=== PATIENT | female | born 1960 | race Caucasian/White ===

== ENCOUNTER 2021-05-25 06:13 | Emergency (ER) | payer BC ==
[2021-05-25] MEDS ORDERED: ONDANSETRON 4 MG/2 ML VIAL ONE (06:30)
[2021-05-25] MEDS ORDERED: ONDANSETRON 4 MG/2 ML VIAL IVPB ONE (06:31)
[2021-05-25] MEDS ORDERED: SODIUM CHLORIDE 1,000 ML IV ONE (06:31)
[2021-05-25 06:33] VITALS: BMI 19.3
[2021-05-25] MEDS ORDERED: morphine SULFATE 4 MG/ML VIAL ONE (06:55)
[2021-05-25] MEDS ORDERED: morphine CARPU-JECT 4 MG/1 ML DISP.SYRIN IVPUSH ONE (07:06)
[2021-05-25 07:42] LABS: BASO % 0.8 % (0-2.0); EOS % 0.8 % (0-4.5); HEMATOCRIT 43.1 % (32.4-45.2); HEMOGLOBIN 14.4 GM/dL (10.7-15.3); LYMPH % 10.9 % (8-40); MCH 30.5 pg (25.7-33.7); MCHC 33.4 g/dl (32.0-36.0); MEAN CELL VOLUME 91.2 fl (80-96); MEAN PLT VOLUME 8.7 fl (7.5-11.1); MONO % 4.4 % (3.8-10.2); NEUT % 83.1 % (42.8-82.8); PLATELET COUNT 338 10^3/uL (134-434); RBC 4.73 M/mm3 (3.60-5.2); RDW 13.5 % (11.6-15.6); WHITE BLOOD COUNT 15.2 K/mm3 (4.0-10.0)
[2021-05-25 08:00] LABS: ALBUMIN 4.8 g/dl (3.4-5.0); BILIRUBIN,TOTAL 1.1 mg/dl (0.2-1); CALCIUM 10.4 mg/dl (8.5-10); CREATININE 0.8 mg/dl (0.55-1.3); TOT PROT 7.5 g/dl (6.4-8.2)
[2021-05-25] MEDS ORDERED: MAGNESIUM SULF 50% (8.12 MEQ/2 ML-1 GM VIAL) IVPB ONE (08:38)
[2021-05-25] MEDS ORDERED: POTASSIUM CHLORIDE TABS 20 MEQ TABLET.ER (FP) PO ONE ×2 (08:38→08:50)
[2021-05-25] MEDS ORDERED: MAGNESIUM 1GM/D5W - 2 GM/200 ML IVPB IVPB ONE (08:48)
[2021-05-25] MEDS ORDERED: LEVOTHYROXINE NA 50 MCG TABLET (FP) PO SCH (11:00)
[2021-05-25] MEDS ORDERED: LACTATED RINGERS SOLUTION 1,000 ML/1,000 ML INFUS.BAG IV SCH (16:00)
[2021-05-25] MEDS ORDERED: HEPARIN NA (PORCINE) 5,000 UNITS/ML 1ML VIAL SQ SCH (18:00)
[2021-05-25] MEDS ORDERED: PHENAZOPYRIDINE HCL 100 MG TABLET (FP) PO ONE (20:35)
[2021-05-25] MEDS ORDERED: NITROFURANTOIN MACROCRYSTAL 50 MG CAPSULE (FP) ONE (20:40)
[2021-05-25] MEDS ORDERED: PHENAZOPYRIDINE HCL 100 MG TABLET (FP) ONE (20:41)
[2021-05-25] MEDS ORDERED: NITROFURANTOIN MACROCRYSTAL 50 MG CAPSULE (FP) PO SCH (20:45)
[2021-05-25 20:46] VITALS: BP 112/74; PULSE 81; TEMP 98.1
== END 2021-05-25 20:54 | disposition left against medical advice (07) ==
LOC: FER 06:13
PROC: 3E033GC Introduction of Other Therapeutic Substance into Peripheral Vein, Percutaneous Approach (ICD-10-PCS; principal; 2021-05-25)
PROC: 3E033NZ Introduction of Analgesics, Hypnotics, Sedatives into Peripheral Vein, Percutaneous Approach (ICD-10-PCS; 2021-05-25)
PROC: 3E033GC Introduction of Other Therapeutic Substance into Peripheral Vein, Percutaneous Approach (ICD-10-PCS; 2021-05-25)
PROC: 3E0337Z Introduction of Electrolytic and Water Balance Substance into Peripheral Vein, Percutaneous Approach (ICD-10-PCS; 2021-05-25)
DX: C45.9 Mesothelioma, unspecified (principal); K56.699 Other intestinal obstruction unspecified as to partial versus complete obstruction; C79.89 Secondary malignant neoplasm of other specified sites
CPT/HCPCS: 36415; 74019-TC-FY; 74177-TC; 80053; 81003; 81015; 82550; 82553; 83605; 83690; 84484; 85025; 87077; 87086; 87186; 93005; 99285-25; C9803; Q9967; U0003; U0005

== ENCOUNTER 2022-08-07 07:52 | Day surgery (SDC) | payer BC ==
[2022-08-03 12:26] VITALS: BMI 18.9
[~2022-08-07 07:52] MED LIST: LACTATED RINGERS SOLUTION 1,000 ML IV SCH
[2022-08-07] MEDS ORDERED: PROPOFOL 120 ML ONE (07:55)
[2022-08-07 10:02] VITALS: RESP 20; TEMP 97.4
[2022-08-07 10:28] VITALS: BP 100/60; PULSE 65
== END 2022-08-07 10:25 | disposition home or self-care (01) ==
LOC: FASU-ENDO 07:52
PROVIDERS: ATTEND Internal Medicine Gastroenterology
PROC: 0DBH8ZX Excision of Cecum, Via Natural or Artificial Opening Endoscopic, Diagnostic (ICD-10-PCS; principal; 2022-08-07 09:18)
DX: Z12.11 Encounter for screening for malignant neoplasm of colon (principal); D12.0 Benign neoplasm of cecum; Z86.010 Personal history of colon polyps; K57.30 Diverticulosis of large intestine without perforation or abscess without bleeding
CPT/HCPCS: 88305-TC

== ENCOUNTER 2022-12-31 09:10 | Emergency (ER) | payer BC ==
[2022-12-31 09:17] VITALS: BMI 18.3
[2022-12-31] MEDS ORDERED: SODIUM CHLORIDE 0.9% 1000 ML INFUS.BAG IV ONE (09:20)
[2022-12-31] MEDS ORDERED: ACETAMINOPHEN 1000 MG/100 ML BAG IVPB ONE (09:32)
[2022-12-31 09:39] LABS: HEMATOCRIT 39.5 % (32.4-45.2); HEMOGLOBIN 13.3 G/dL (10.7-15.3); MCH 30.3 pg (25.7-33.7); MCHC 33.6 g/dl (32.0-36.0); MEAN CELL VOLUME 90.2 fl (80-96); PLATELET COUNT 415.9 10^3/uL (134-434); RBC 4.38 10^6/uL (3.60-5.2); WHITE BLOOD COUNT 26.2 10^3/uL (4.0-10.8)
[2022-12-31] MEDS ORDERED: ACETAMINOPHEN INJECTION 100 ML IVPB ONE (09:40)
[2022-12-31 10:28] LABS: ALBUMIN 4.3 g/dl (3.4-5.0); BLOOD UREA NITROGEN 11.4 mg/dl (7-18); CALCIUM 9.3 mg/dl (8.5-10.1); CREATININE 0.7 mg/dl (0.6-1.3); POTASSIUM 3.3 mmol/L (3.5-5.1); SGOT/AST 23.1 U/L (15-37); TOT PROT 7.1 g/dl (6.4-8.2)
[2022-12-31] MEDS ORDERED: POTASSIUM CHLORIDE TABS 20 MEQ TABLET.ER (FP) PO ONE ×2 (10:36→10:52)
[2022-12-31 14:18] LABS: EPITHELIAL CELLS FEW /hpf; URINE MUCUS 1+
[2022-12-31 14:50] VITALS: BP 106/74; PULSE 66; RESP 18
[2022-12-31 17:33] VITALS: TEMP 98.6
== END 2022-12-31 16:44 | disposition left against medical advice (07) ==
LOC: FER 09:10 → UNDOADMIN 15:18 → FM/S 15:18
PROC: 3E033NZ Introduction of Analgesics, Hypnotics, Sedatives into Peripheral Vein, Percutaneous Approach (ICD-10-PCS; principal; 2022-12-31)
DX: K52.9 Noninfective gastroenteritis and colitis, unspecified (principal); I81 Portal vein thrombosis; C45.9 Mesothelioma, unspecified
CPT/HCPCS: 0241U-QW; 36415; 71045-TC-FY; 74177-TC; 80053; 81003; 81015; 83690; 85027; 87045; 87046; 87086; 87186; 87324; 87449; 99285-25; Q9967

== ENCOUNTER 2023-06-03 17:51 | Emergency (ER) | payer BC ==
[2023-06-03 18:08] VITALS: BP 139/91; PULSE 74; RESP 16; TEMP 98; BMI 17.3
[2023-06-03] MEDS ORDERED: ONDANSETRON 4 MG/2 ML VIAL IVPUSH ONE (18:22)
[2023-06-03] MEDS ORDERED: SODIUM CHLORIDE 1,000 ML IV STA (18:22)
[2023-06-03] MEDS ORDERED: ONDANSETRON 4 MG/2 ML VIAL ONE (18:52)
[2023-06-03 19:17] LABS: HEMATOCRIT 27.4 % (32.4-45.2); HEMOGLOBIN 8.6 G/dL (10.7-15.3); MCH 30.6 pg (25.7-33.7); MCHC 31.2 g/dl (32.0-36.0); MEAN CELL VOLUME 97.7 fl (80-96); MEAN PLT VOLUME 8.1 fl (7.5-11.1); PLATELET COUNT 420.3 10^3/uL (134-434); RDW 31.7 % (11.6-15.6); WHITE BLOOD COUNT 6.7 10^3/uL (4.0-10.8)
[2023-06-03 19:28] LABS: INR 1.28 (0.83-1.09); PROTHROMBIN TIME (PATIENT) 14.8 SEC (9.7-13.0)
[2023-06-03 19:31] LABS: ACTIVATED PTT 29.2 SECONDS (25.2-36.5)
[2023-06-03 19:40] LABS: ALBUMIN 3.7 g/dl (3.4-5.0); ALK PHOS 121 U/L (45-117); ANION GAP 8 mmol/L (4-13); BILIRUBIN,TOTAL 0.5 mg/dl (0.2-1); CALCIUM 8.4 mg/dl (8.5-10.1); CHLORIDE 97 mmol/L (98-107); CO2 32 mmol/L (21-32); CREATININE 0.8 mg/dl (0.6-1.3); GLUCOSE,RANDOM 97 mg/dl (74-106); PHOSPHOROUS 3.4 (2.5-4.9); POTASSIUM 4.1 mmol/L (3.5-5.1); SGOT/AST 27 U/L (15-37); SGPT/ALT 20 U/L (7-52); SODIUM 137 mmol/L (136-145); TOT PROT 5.9 g/dl (6.4-8.2)
[2023-06-03 19:41] LABS: EPITHELIAL CELLS 0-5 /hpf
[2023-06-03 19:56] LABS: MAGNESIUM 0.8 mg/dL (1.8-2.4)
[2023-06-03] MEDS ORDERED: MAGNESIUM SULFATE IN WATER 2 GM/50 ML IVPB IVPB ONE ×2 (19:56→19:58)
[2023-06-03 20:37] LABS: LIPASE 51 U/L (73-393)
[2023-06-03 21:50] LABS: ANISOCYTOSIS 3+; MACROCYTOSIS 2+; OVALOCYTE 2+; TARGET CELLS 1+; TEAR DROP CELLS 1+
[2023-06-03] MEDS ORDERED: morphine CARPU-JECT 8 MG/1 ML DISP.SYRIN IVPUSH ONE (22:31)
[2023-06-03] MEDS ORDERED: morphine SULFATE 4 MG/ML VIAL ONE (22:44)
== END 2023-06-04 02:00 | disposition home or self-care (01) ==
LOC: FER 17:51
PROC: 3E033GC Introduction of Other Therapeutic Substance into Peripheral Vein, Percutaneous Approach (ICD-10-PCS; principal; 2023-06-03)
PROC: 3E033GC Introduction of Other Therapeutic Substance into Peripheral Vein, Percutaneous Approach (ICD-10-PCS; 2023-06-03)
PROC: 3E033GC Introduction of Other Therapeutic Substance into Peripheral Vein, Percutaneous Approach (ICD-10-PCS; 2023-06-03)
PROC: 3E0337Z Introduction of Electrolytic and Water Balance Substance into Peripheral Vein, Percutaneous Approach (ICD-10-PCS; 2023-06-03)
DX: R10.84 Generalized abdominal pain (principal); R11.2 Nausea with vomiting, unspecified; K52.9 Noninfective gastroenteritis and colitis, unspecified
CPT/HCPCS: 36415; 74177-TC; 80053; 81003; 81015; 83605; 83690; 83735; 84100; 85027; 85610; 85730; 86850; 86900; 86901; 87086; 87186; 93005; 99285-25; Q9967